=== PATIENT | male | born 1940 | race Caucasian/White ===

== ENCOUNTER → 2018-10-26 | Outpatient (CLI) | payer OTHER | END | disposition home or self-care (01) | LOC: RAD 16:05 | PROVIDERS: ATTEND Family Medicine | DX: I67.82 Cerebral ischemia (principal); C34.90 Malignant neoplasm of unspecified part of unspecified bronchus or lung | CPT/HCPCS: 70551 ==

== ENCOUNTER 2018-11-03 18:03 | Inpatient (IN) | payer OTHER ==
[~2018-11-03] VITALS: Ht 180.3 cm; Wt 77.6 kg
[2018-11-03] MEDS ORDERED: SODIUM CHLORIDE 0.9% 1,000 ML IV ONE (18:07)
[2018-11-03] MEDS ORDERED: PLEASE ENTER ALLERGIES MC SCH (18:30)
[2018-11-03] MEDS ORDERED: SODIUM CHLORIDE FLUSH 10ML SYR IVF ONE (18:30)
[2018-11-03] MEDS ORDERED: PLEASE ENTER HEIGHT AND WEIGHT MC SCH (18:30)
--- NOTE | 2018-11-03 18:30 | NUR ---
requested records from [facility]
--- NOTE | 2018-11-03 18:31 | NUR ---
GUSTAVO AND DAUGHTER AT DNR CODE STATUS PER IS POA PHONE NUMBER GABRIEL [phone] DAUGHTER [facility] [employer] TECHNICAL SPECIALIST [phone]
[2018-11-03 18:32] LABS: BASOPHILS # (AUTO) 0.01 x10^3/uL (0-0.1); BASOPHILS % (AUTO) 0 % (0-1); EOSINOPHILS % (AUTO) 0 % (1-7); LYMPHOCYTES # (AUTO) 1.32 x10^3/uL (1-3.4); LYMPHOCYTES % (AUTO) 7 % (22-44); MD NO; MEAN CORPUSCULAR HEMOGLOBIN 31.8 pg (27.5-34.5); MEAN CORPUSCULAR HGB CONC 34.2 g/dL (33.2-36.2); MEAN PLATELET VOLUME 7.1 fL (7.4-10.4); MONOCYTES # (AUTO) 1.43 x10^3/uL (0.2-0.8); MONOCYTES % (AUTO) 8 % (2-9); NEUTROPHILS # (AUTO) 14.97 x10^3/uL (1.8-6.8); NEUTROPHILS % (AUTO) 84 % (42-75); PLATELET COUNT 448 x10^3/uL (130-400); RED BLOOD COUNT 4.38 x10^6/uL (4.38-5.82); RED CELL DISTRIBUTION WIDTH 13.6 % (9.4-14.8)
[2018-11-03 18:38] LABS: INTERNATIONAL NORMALIZED RATIO 1.2 (0.93-1.1); PROTHROMBIN TIME 12.6 Seconds (9.6-11.5)
[2018-11-03 18:42] LABS: ALANINE AMINOTRANSFERASE 47 U/L (12-78); ALBUMIN 2.6 g/dL (3.4-5.0); ANION GAP 9 mmol/L (5-15); CALCIUM 12.3 mg/dL (8.5-10.1); CHLORIDE 106 mmol/L (98-107)
[2018-11-03 18:44] LABS: ALKALINE PHOSPHATASE 184 U/L (45-117); BILIRUBIN,TOTAL 1.1 mg/dL (0.2-1.0); CREATINE KINASE, TOTAL 95 U/L (39-308); CREATININE 1.26 mg/dL (0.7-1.3); TOTAL PROTEIN 8.8 g/dL (6.4-8.2); TROPONIN I 0.021 ng/mL (0.000-0.045)
[2018-11-03] MEDS ORDERED: CEFTRIAXONE PMX 1GM/50ML 50 ML IV ONE (19:00)
[2018-11-03] MEDS ORDERED: SODIUM CHLORIDE 0.9%, 500ML IVBOLUS ONE ×2 (19:00→20:30)
[2018-11-03] MEDS ORDERED: CEFTRIAXONE PMX 1GM/50ML 50 ML ONE (19:03)
--- NOTE | 2018-11-03 19:14 | NUR ---
care assumed from indu garcia to CT scan, fluids and abx infusing. Addendum: 11/03/18 at 1915 by FELIX BC X 2 DRAWN PRIOR TO ABX INFUSING
[2018-11-03] MEDS ORDERED: OXYCODONE PO (19:20)
--- NOTE | 2018-11-03 19:53 | NUR ---
URINE SENT TO LAB
--- NOTE | 2018-11-03 20:06 | NUR ---
PT PROVIDED ADDITIONAL WARM BLANKETS
[2018-11-03 20:24] LABS: ACETONE, SERUM Trace (10mg/dL) mg/dL (Negative)
[2018-11-03] MEDS ORDERED: OMNIPAQUE 350 MG/ML, 100ML BOTTLE ONE (20:25)
[2018-11-03 20:28] LABS: MICROSCOPIC INDICATED
[2018-11-03 20:30] LABS: CULTURE INDICATED? NO
[2018-11-03] MEDS ORDERED: ONDANSETRON ODT 4 MG PO PRN (21:30)
[2018-11-03] MEDS ORDERED: OXYcodone IR 5MG TABLET PO PRN (21:30)
[2018-11-03] MEDS ORDERED: ONDANSETRON 2MG/ML, 2ML IVPush PRN (21:30)
[2018-11-03] MEDS ORDERED: hydrALAzine 20 MG/ML, 1ML IVPush PRN (21:30)
[2018-11-03] MEDS ORDERED: CALCITONIN SALMON 200 UNITS/ML, 2ML SQ ONE (21:30)
[2018-11-03] MEDS ORDERED: ACETAMINOPHEN 325 MG TABLET PO PRN (21:30)
[2018-11-03] MEDS ORDERED: ENALAPRILAT 1.25 MG/ML, 2ML IVPush PRN (21:30)
[2018-11-03] MEDS ORDERED: morphine SULFATE 10 MG/ML, 1ML IVPush PRN (21:30)
--- NOTE | 2018-11-03 22:09 | NUR ---
nurse called from floor stating they could not take the pt.
[2018-11-03 22:50] VITALS: BP 172/80
[2018-11-03 23:39] VITALS: BP 132/71
[2018-11-04 01:09] VITALS: BP 109/64
[2018-11-04] MEDS: SODIUM CHLORIDE 0.9% 1,000 ML IV SCH ×2 (01:18→08:17)
[2018-11-04] MEDS: HEPARIN 5,000 UNITS/ML, 1ML SQ SCH ×2 (01:19→09:50)
[2018-11-04 03:56] VITALS: BP 147/67
[2018-11-04 07:55] LABS: MEAN CORPUSCULAR HEMOGLOBIN 31.2 pg (27.5-34.5); MEAN CORPUSCULAR HGB CONC 33.6 g/dL (33.2-36.2); MEAN CORPUSCULAR VOLUME 92.9 fL (81-97); MEAN PLATELET VOLUME 6.7 fL (7.4-10.4); PLATELET COUNT 372 x10^3/uL (130-400); RED CELL DISTRIBUTION WIDTH 13.9 % (9.4-14.8)
[2018-11-04 08:06] LABS: ANION GAP 11 mmol/L (5-15); CALCIUM 10.5 mg/dL (8.5-10.1); CHLORIDE 114 mmol/L (98-107)
[2018-11-04 08:15] VITALS: BP 163/75
[2018-11-04 08:41] LABS: BASOPHILS % (AUTO) 0 % (0-1); EOSINOPHILS % (AUTO) 0 % (1-7); LYMPHOCYTES % (AUTO) 5 % (22-44); MD SCAN; MONOCYTES # (AUTO) 1.41 x10^3/uL (0.2-0.8); MONOCYTES % (AUTO) 8 % (2-9); NEUTROPHILS # (AUTO) 15.26 x10^3/uL (1.8-6.8); NEUTROPHILS % (AUTO) 87 % (42-75)
[2018-11-04] MEDS: SENNA/DOCUSATE TABLET PO SCH (09:00)
[2018-11-04] MEDS ORDERED: SODIUM PHOSPHATE 10 MMOL in SODIUM CHLORIDE 0.9% 500 ML IV ONE (09:00)
[2018-11-04 10:17] LABS: AMPHETAMINE SCREEN, URINE Negative (Negative); BARBITURATE SCREEN, URINE Negative (Negative); BENZODIAZEPINE SCREEN, URINE Negative (Negative); CANNABINOID SCREEN, URINE Negative (Negative); COCAINE SCREEN, URINE Negative (Negative); METHADONE SCREEN, URINE Negative (Negative); OPIATE SCREEN, URINE Positive (Negative)
[2018-11-04 10:22] LABS: SALICYLATE LEVEL 2.2 mg/dL (2.8-20.0)
[2018-11-04 10:24] LABS: ACETAMINOPHEN < 2 mcg/mL (10-30)
[2018-11-04] MEDS ORDERED: OMNIPAQUE 350 MG/ML, 100ML BOTTLE ONE (12:05)
[2018-11-04] MEDS ORDERED: OXYcodone/APAP 5/325MG TABLET PO PRN (13:30)
[2018-11-04] MEDS: ACETAMINOPHEN 325 MG TABLET PO SCH ×3 (13:30→21:04)
[2018-11-04] MEDS: IBUPROFEN 200 MG TABLET PO SCH ×2 (14:10→21:04)
--- NOTE | 2018-11-04 14:10 | NUR ---
RAILROAD INSPECTOR recommend: Ground/NTL -No straws -Up at 90 degrees -Small sips Please assist patient as needed orange sheet posted in room for diet recommendations Addendum: 11/04/18 at 1410 by LIT SHORE Amended: Links added.
[2018-11-04 14:20] VITALS: BP 173/72
[2018-11-04 15:26] VITALS: BP 148/63
[2018-11-04 19:14] VITALS: BP 165/74
[2018-11-04] MEDS ORDERED: CEFTRIAXONE PMX 1GM/50ML 50 ML IV SCH (22:30)
[2018-11-05] VITALS (7 sets, daily range): BP systolic 151–189; BP diastolic 47–87
[2018-11-05] MEDS: ACETAMINOPHEN 325 MG TABLET PO SCH ×6 (01:30→23:00)
[2018-11-05] MEDS: IBUPROFEN 200 MG TABLET PO SCH ×3 (01:30→14:42)
[2018-11-05 05:32] LABS: MEAN CORPUSCULAR HEMOGLOBIN 31.6 pg (27.5-34.5); MEAN CORPUSCULAR HGB CONC 33.5 g/dL (33.2-36.2); MEAN CORPUSCULAR VOLUME 94.5 fL (81-97); MEAN PLATELET VOLUME 7.2 fL (7.4-10.4); PLATELET COUNT 369 x10^3/uL (130-400); RED BLOOD COUNT 3.62 x10^6/uL (4.38-5.82)
[2018-11-05 05:37] LABS: ANION GAP 8 mmol/L (5-15); CALCIUM 10.3 mg/dL (8.5-10.1); CHLORIDE 118 mmol/L (98-107); CREATININE 0.92 mg/dL (0.7-1.3)
[2018-11-05 06:42] LABS: BASOPHILS # (AUTO) 0.04 x10^3/uL (0-0.1); BASOPHILS % (AUTO) 0 % (0-1); EOSINOPHILS # (AUTO) 0.01 x10^3/uL (0-0.4); EOSINOPHILS % (AUTO) 0 % (1-7); LYMPHOCYTES # (AUTO) 1.14 x10^3/uL (1-3.4); LYMPHOCYTES % (AUTO) 8 % (22-44); MD SCAN; MONOCYTES # (AUTO) 1.68 x10^3/uL (0.2-0.8); MONOCYTES % (AUTO) 12 % (2-9); NEUTROPHILS % (AUTO) 80 % (42-75)
[2018-11-05] MEDS: D5%-0.45% NACL 1,000 ML IV SCH ×2 (06:57→16:38)
[2018-11-05] MEDS ORDERED: OXYcodone/APAP 5/325MG TABLET PO SCH ×2 (07:30→09:00)
[2018-11-05] MEDS: SENNA/DOCUSATE TABLET PO SCH (09:00)
[2018-11-05] MEDS: LISINOPRIL 5 MG TABLET PO SCH (09:02)
[2018-11-05] MEDS ORDERED: FLUMAZENIL 0.1 MG/1 ML, 5ML ONE (10:24)
[2018-11-05] MEDS ORDERED: FENTANYL PF 100 MCG/2ML ONE (10:24)
[2018-11-05] MEDS ORDERED: MIDAZOLAM 1 MG/ML, 5ML ONE (10:24)
[2018-11-05] MEDS ORDERED: NALOXONE 1 MG/ML, 2ML ONE (10:24)
[2018-11-05] MEDS ORDERED: LIDOCAINE-MPF 1%, 5ML ONE (10:47)
[2018-11-05] MEDS ORDERED: OMNIPAQUE 350 MG/ML, 75ML BOTTLE ONE (10:49)
[2018-11-05] MEDS: KETOROLAC 30 MG/1 ML IV PRN (12:40)
--- NOTE | 2018-11-05 13:15 | NUR ---
LINER WORKER recommend: NAHUM/BENJAMÍN -No straws -Up at 90 degrees -Small sips Please assist patient as needed Yancey sheet posted for diet recommendations Addendum: 11/05/18 at [address] Amended: Links added.
[2018-11-05] MEDS: OXYcodone IR 5MG TABLET PO SCH ×2 (14:42→20:48)
[2018-11-05] MEDS ORDERED: OXYcodone IR 5MG TABLET PO PRN (15:00)
[2018-11-06] MEDS: OXYcodone IR 5MG TABLET PO SCH ×4 (02:07→21:07)
[2018-11-06] MEDS: ACETAMINOPHEN 325 MG TABLET PO SCH ×6 (02:07→23:19)
[2018-11-06 02:26] VITALS: BP 184/68
[2018-11-06 02:45] VITALS: BP 159/71
[2018-11-06 05:50] LABS: ALBUMIN 1.8 g/dL (3.4-5.0); ANION GAP 10 mmol/L (5-15); CALCIUM 10.8 mg/dL (8.5-10.1); CHLORIDE 116 mmol/L (98-107); MEAN CORPUSCULAR HEMOGLOBIN 31.9 pg (27.5-34.5); MEAN CORPUSCULAR HGB CONC 33.8 g/dL (33.2-36.2); MEAN CORPUSCULAR VOLUME 94.3 fL (81-97); MEAN PLATELET VOLUME 7.3 fL (7.4-10.4); PLATELET COUNT 329 x10^3/uL (130-400); RED BLOOD COUNT 3.37 x10^6/uL (4.38-5.82); RED CELL DISTRIBUTION WIDTH 13.9 % (9.4-14.8)
[2018-11-06 05:51] LABS: CREATININE 1.66 mg/dL (0.7-1.3)
[2018-11-06 06:52] VITALS: BP 135/64
[2018-11-06 07:26] LABS: BASOPHILS # (AUTO) 0.01 x10^3/uL (0-0.1); BASOPHILS % (AUTO) 0 % (0-1); EOSINOPHILS # (AUTO) 0.04 x10^3/uL (0-0.4); EOSINOPHILS % (AUTO) 0 % (1-7); LYMPHOCYTES # (AUTO) 1.25 x10^3/uL (1-3.4); LYMPHOCYTES % (AUTO) 11 % (22-44); MD SCAN; MONOCYTES # (AUTO) 1.48 x10^3/uL (0.2-0.8); MONOCYTES % (AUTO) 13 % (2-9); NEUTROPHILS # (AUTO) 8.99 x10^3/uL (1.8-6.8); NEUTROPHILS % (AUTO) 76 % (42-75)
[2018-11-06] MEDS: D5%-0.45% NACL 1,000 ML IV SCH ×2 (08:18→19:39)
[2018-11-06] MEDS: LISINOPRIL 5 MG TABLET PO SCH (08:26)
[2018-11-06] MEDS: SENNA/DOCUSATE TABLET PO SCH (08:28)
[2018-11-06 12:42] VITALS: BP 135/67
[2018-11-06 20:20] VITALS: BP 152/66
[2018-11-07 00:33] VITALS: BP 166/78
[2018-11-07] MEDS: OXYcodone IR 5MG TABLET PO SCH ×4 (02:17→20:38)
[2018-11-07] MEDS: ACETAMINOPHEN 325 MG TABLET PO SCH ×6 (02:17→22:35)
[2018-11-07] MEDS: D5%-0.45% NACL 1,000 ML IV SCH ×2 (06:06→15:42)
[2018-11-07 06:17] LABS: BASOPHILS # (AUTO) 0.02 x10^3/uL (0-0.1); BASOPHILS % (AUTO) 0 % (0-1); EOSINOPHILS % (AUTO) 1 % (1-7); LYMPHOCYTES % (AUTO) 12 % (22-44); MD NO; MEAN CORPUSCULAR HEMOGLOBIN 31.5 pg (27.5-34.5); MEAN CORPUSCULAR HGB CONC 33.6 g/dL (33.2-36.2); MEAN CORPUSCULAR VOLUME 93.5 fL (81-97); MEAN PLATELET VOLUME 6.8 fL (7.4-10.4); MONOCYTES # (AUTO) 1.38 x10^3/uL (0.2-0.8); MONOCYTES % (AUTO) 12 % (2-9); NEUTROPHILS # (AUTO) 8.65 x10^3/uL (1.8-6.8); NEUTROPHILS % (AUTO) 75 % (42-75); PLATELET COUNT 314 x10^3/uL (130-400); RED BLOOD COUNT 3.55 x10^6/uL (4.38-5.82); RED CELL DISTRIBUTION WIDTH 14.2 % (9.4-14.8)
[2018-11-07 06:30] LABS: ANION GAP 9 mmol/L (5-15); CALCIUM 10.2 mg/dL (8.5-10.1); CHLORIDE 114 mmol/L (98-107); CREATININE 2.97 mg/dL (0.7-1.3)
[2018-11-07 07:14] VITALS: BP 137/59
[2018-11-07] MEDS: SENNA/DOCUSATE TABLET PO SCH (08:18)
[2018-11-07] MEDS: LISINOPRIL 5 MG TABLET PO SCH (08:18)
[2018-11-07] MEDS ORDERED: VERAPAMIL 80MG TABLET PO SCH (09:00)
[2018-11-07 13:17] VITALS: BP 152/69
[2018-11-07] MEDS: DOCUSATE 100 MG CAPSULE PO PRN (15:41)
[2018-11-07 19:36] VITALS: BP 177/79
[2018-11-07 22:39] VITALS: BP 174/71
[2018-11-08] MEDS: HEPARIN 5,000 UNITS/ML, 1ML SQ SCH ×3 (00:02→22:06)
[2018-11-08 01:07] VITALS: BP 166/69
[2018-11-08] MEDS: D5%-0.45% NACL 1,000 ML IV SCH ×2 (01:30→11:30)
[2018-11-08 01:54] VITALS: BP 165/69
[2018-11-08] MEDS: OXYcodone IR 5MG TABLET PO SCH ×4 (03:37→22:06)
[2018-11-08] MEDS: ACETAMINOPHEN 325 MG TABLET PO SCH ×5 (03:37→22:06)
[2018-11-08] MEDS: POLYETHYLENE GLYCOL 17 GM PACKET PO PRN (03:46)
[2018-11-08 05:28] LABS: MEAN CORPUSCULAR HEMOGLOBIN 31.1 pg (27.5-34.5); MEAN CORPUSCULAR HGB CONC 33.5 g/dL (33.2-36.2); MEAN CORPUSCULAR VOLUME 92.7 fL (81-97); MEAN PLATELET VOLUME 7.2 fL (7.4-10.4); PLATELET COUNT 322 x10^3/uL (130-400); RED BLOOD COUNT 3.63 x10^6/uL (4.38-5.82); RED CELL DISTRIBUTION WIDTH 13.8 % (9.4-14.8)
[2018-11-08 05:41] LABS: CHLORIDE 117 mmol/L (98-107)
[2018-11-08 05:47] LABS: CALCIUM 10.1 mg/dL (8.5-10.1); CREATININE 0.98 mg/dL (0.7-1.3)
[2018-11-08 05:53] LABS: ANION GAP 8 mmol/L (5-15); BASOPHILS # (AUTO) 0.03 x10^3/uL (0-0.1); BASOPHILS % (AUTO) 0 % (0-1); EOSINOPHILS # (AUTO) 0.04 x10^3/uL (0-0.4); EOSINOPHILS % (AUTO) 0 % (1-7); LYMPHOCYTES # (AUTO) 1.43 x10^3/uL (1-3.4); LYMPHOCYTES % (AUTO) 11 % (22-44); MD SCAN; MONOCYTES # (AUTO) 1.49 x10^3/uL (0.2-0.8); MONOCYTES % (AUTO) 12 % (2-9); NEUTROPHILS # (AUTO) 9.65 x10^3/uL (1.8-6.8); NEUTROPHILS % (AUTO) 76 % (42-75)
[2018-11-08] MEDS ORDERED: MAGNESIUM SULFATE PMX 2GM/50ML 50 ML IV ONE (06:30)
[2018-11-08 06:57] VITALS: BP 158/72
[2018-11-08] MEDS ORDERED: AMLODIPINE 2.5 MG TABLET PO SCH (09:00)
[2018-11-08] MEDS: SENNA/DOCUSATE TABLET PO SCH (09:09)
[2018-11-08] MEDS ORDERED: POTASSIUM PHOSPHATE 44 MEQ in SODIUM CHLORIDE 0.9% 500 ML IV ONE (12:30)
[2018-11-08 13:18] VITALS: BP 146/68
[2018-11-08 15:45] LABS: CULTURE INDICATED? YES; MICROSCOPIC INDICATED
[2018-11-08 19:46] VITALS: BP 147/72
[2018-11-09] MEDS: ACETAMINOPHEN 325 MG TABLET PO SCH ×6 (01:00→22:46)
[2018-11-09 01:43] VITALS: BP 166/66
[2018-11-09 05:11] LABS: MEAN CORPUSCULAR HEMOGLOBIN 31.2 pg (27.5-34.5); MEAN CORPUSCULAR HGB CONC 33.7 g/dL (33.2-36.2); MEAN CORPUSCULAR VOLUME 92.4 fL (81-97); MEAN PLATELET VOLUME 7.3 fL (7.4-10.4); PLATELET COUNT 345 x10^3/uL (130-400); RED BLOOD COUNT 3.62 x10^6/uL (4.38-5.82); RED CELL DISTRIBUTION WIDTH 13.8 % (9.4-14.8)
[2018-11-09] MEDS: OXYcodone IR 5MG TABLET PO SCH ×4 (05:11→22:46)
[2018-11-09 05:21] LABS: ANION GAP 9 mmol/L (5-15); CALCIUM 9.7 mg/dL (8.5-10.1); CHLORIDE 109 mmol/L (98-107)
[2018-11-09 05:25] LABS: ALANINE AMINOTRANSFERASE 65 U/L (12-78); ALKALINE PHOSPHATASE 273 U/L (45-117); BILIRUBIN,TOTAL 0.7 mg/dL (0.2-1.0); CREATININE 0.76 mg/dL (0.7-1.3); TOTAL PROTEIN 7.1 g/dL (6.4-8.2)
[2018-11-09 05:48] LABS: BASOPHILS # (AUTO) 0.01 x10^3/uL (0-0.1); BASOPHILS % (AUTO) 0 % (0-1); EOSINOPHILS # (AUTO) 0.07 x10^3/uL (0-0.4); EOSINOPHILS % (AUTO) 1 % (1-7); LYMPHOCYTES # (AUTO) 1.61 x10^3/uL (1-3.4); LYMPHOCYTES % (AUTO) 12 % (22-44); MD SCAN; MONOCYTES # (AUTO) 1.91 x10^3/uL (0.2-0.8); MONOCYTES % (AUTO) 14 % (2-9); NEUTROPHILS # (AUTO) 10.26 x10^3/uL (1.8-6.8); NEUTROPHILS % (AUTO) 74 % (42-75)
[2018-11-09] MEDS ORDERED: MAGNESIUM SULFATE PMX 2GM/50ML 50 ML IV ONE (06:30)
[2018-11-09] MEDS ORDERED: TAMSULOSIN 0.4 MG CAP.ER.24H PO ONE (07:00)
[2018-11-09] MEDS ORDERED: POTASSIUM PHOSPHATE 44 MEQ in SODIUM CHLORIDE 0.9% 500 ML IV ONE (07:00)
[2018-11-09 07:14] VITALS: BP 147/65
[2018-11-09] MEDS: SENNA/DOCUSATE TABLET PO SCH (08:14)
[2018-11-09] MEDS: AMLODIPINE 5 MG TABLET PO SCH (08:14)
[2018-11-09] MEDS ORDERED: AMLODIPINE 5 MG TABLET PO SCH (09:00)
[2018-11-09] MEDS: KETOROLAC 30 MG/1 ML IV PRN (10:39)
[2018-11-09] MEDS: HEPARIN 5,000 UNITS/ML, 1ML SQ SCH ×2 (12:12→22:47)
[2018-11-09 13:02] VITALS: BP 120/61
[2018-11-09 20:31] VITALS: BP 148/71
[2018-11-10 02:33] VITALS: BP 163/72
[2018-11-10] MEDS: ACETAMINOPHEN 325 MG TABLET PO SCH ×6 (03:00→22:42)
[2018-11-10 05:45] LABS: MEAN CORPUSCULAR HEMOGLOBIN 31.4 pg (27.5-34.5); MEAN CORPUSCULAR HGB CONC 33.9 g/dL (33.2-36.2); MEAN CORPUSCULAR VOLUME 92.8 fL (81-97); MEAN PLATELET VOLUME 7.5 fL (7.4-10.4); PLATELET COUNT 359 x10^3/uL (130-400); RED CELL DISTRIBUTION WIDTH 13.8 % (9.4-14.8)
[2018-11-10 05:55] LABS: ANION GAP 9 mmol/L (5-15); CHLORIDE 108 mmol/L (98-107); CREATININE 0.94 mg/dL (0.7-1.3)
[2018-11-10] MEDS: OXYcodone IR 5MG TABLET PO SCH ×3 (06:03→18:30)
[2018-11-10 06:38] LABS: BASOPHILS # (AUTO) 0.03 x10^3/uL (0-0.1); BASOPHILS % (AUTO) 0 % (0-1); EOSINOPHILS # (AUTO) 0.08 x10^3/uL (0-0.4); EOSINOPHILS % (AUTO) 1 % (1-7); LYMPHOCYTES # (AUTO) 1.44 x10^3/uL (1-3.4); LYMPHOCYTES % (AUTO) 9 % (22-44); MD SCAN; MONOCYTES % (AUTO) 13 % (2-9); NEUTROPHILS # (AUTO) 12.25 x10^3/uL (1.8-6.8); NEUTROPHILS % (AUTO) 78 % (42-75)
[2018-11-10 07:40] VITALS: BP 159/69
[2018-11-10] MEDS: AMLODIPINE 5 MG TABLET PO SCH (08:20)
[2018-11-10] MEDS: SENNA/DOCUSATE TABLET PO SCH (08:22)
[2018-11-10] MEDS: HEPARIN 5,000 UNITS/ML, 1ML SQ SCH ×2 (11:55→22:42)
[2018-11-10 14:17] VITALS: BP 154/73
[2018-11-10 19:04] VITALS: BP 155/72
[2018-11-11] MEDS: OXYcodone IR 5MG TABLET PO SCH ×5 (01:07→18:13)
[2018-11-11 01:16] VITALS: BP 148/67
[2018-11-11] MEDS: ACETAMINOPHEN 325 MG TABLET PO SCH ×6 (02:30→21:44)
[2018-11-11 05:58] LABS: MEAN CORPUSCULAR HEMOGLOBIN 31.9 pg (27.5-34.5); MEAN CORPUSCULAR HGB CONC 34.2 g/dL (33.2-36.2); MEAN CORPUSCULAR VOLUME 93.1 fL (81-97); MEAN PLATELET VOLUME 7.1 fL (7.4-10.4); PLATELET COUNT 345 x10^3/uL (130-400); RED BLOOD COUNT 3.83 x10^6/uL (4.38-5.82)
[2018-11-11 06:08] LABS: ANION GAP 7 mmol/L (5-15); CALCIUM 10.8 mg/dL (8.5-10.1); CHLORIDE 107 mmol/L (98-107); CREATININE 1.13 mg/dL (0.7-1.3)
[2018-11-11 06:13] LABS: BASOPHILS # (AUTO) 0.02 x10^3/uL (0-0.1); BASOPHILS % (AUTO) 0 % (0-1); EOSINOPHILS # (AUTO) 0.08 x10^3/uL (0-0.4); EOSINOPHILS % (AUTO) 1 % (1-7); LYMPHOCYTES # (AUTO) 1.62 x10^3/uL (1-3.4); LYMPHOCYTES % (AUTO) 12 % (22-44); MD SCAN; MONOCYTES % (AUTO) 13 % (2-9); NEUTROPHILS # (AUTO) 9.86 x10^3/uL (1.8-6.8); NEUTROPHILS % (AUTO) 74 % (42-75)
[2018-11-11 07:36] VITALS: BP 140/63
[2018-11-11] MEDS: SENNA/DOCUSATE TABLET PO SCH (08:06)
[2018-11-11] MEDS: AMLODIPINE 5 MG TABLET PO SCH (08:06)
[2018-11-11] MEDS: POLYETHYLENE GLYCOL 17 GM PACKET PO PRN (08:06)
[2018-11-11] MEDS: HEPARIN 5,000 UNITS/ML, 1ML SQ SCH ×2 (12:11→23:41)
[2018-11-11 13:29] VITALS: BP 136/69
[2018-11-11] MEDS ORDERED: ZOLEDRONIC ACID 4MG/100ML 100 ML IV ONE (14:00)
[2018-11-11] MEDS ORDERED: ZOLEDRONIC ACID 4 MG in SODIUM CHLORIDE 0.9% 100 ML IVPB ONE (14:00)
[2018-11-11 19:36] VITALS: BP 128/68
[2018-11-12] MEDS: OXYcodone IR 5MG TABLET PO SCH ×4 (01:15→19:51)
[2018-11-12 01:26] VITALS: BP 143/71
[2018-11-12] MEDS: ACETAMINOPHEN 325 MG TABLET PO SCH ×6 (03:31→23:13)
[2018-11-12 05:23] LABS: MEAN CORPUSCULAR HEMOGLOBIN 31.9 pg (27.5-34.5); MEAN CORPUSCULAR HGB CONC 34.5 g/dL (33.2-36.2); MEAN CORPUSCULAR VOLUME 92.4 fL (81-97); MEAN PLATELET VOLUME 7.3 fL (7.4-10.4); PLATELET COUNT 365 x10^3/uL (130-400); RED BLOOD COUNT 3.69 x10^6/uL (4.38-5.82); RED CELL DISTRIBUTION WIDTH 14.1 % (9.4-14.8)
[2018-11-12 05:36] LABS: ANION GAP 9 mmol/L (5-15); CALCIUM 10.1 mg/dL (8.5-10.1); CHLORIDE 105 mmol/L (98-107); CREATININE 0.86 mg/dL (0.7-1.3)
[2018-11-12 05:42] LABS: BASOPHILS # (AUTO) 0.03 x10^3/uL (0-0.1); BASOPHILS % (AUTO) 0 % (0-1); EOSINOPHILS # (AUTO) 0.04 x10^3/uL (0-0.4); EOSINOPHILS % (AUTO) 0 % (1-7); LYMPHOCYTES # (AUTO) 1.27 x10^3/uL (1-3.4); LYMPHOCYTES % (AUTO) 8 % (22-44); MD SCAN; MONOCYTES % (AUTO) 15 % (2-9); NEUTROPHILS # (AUTO) 12.08 x10^3/uL (1.8-6.8); NEUTROPHILS % (AUTO) 77 % (42-75)
[2018-11-12] MEDS: BISACODYL 10 MG SUPP PR PRN (06:45)
[2018-11-12] MEDS: SENNA/DOCUSATE TABLET PO SCH (09:00)
[2018-11-12 09:05] VITALS: BP 142/67
[2018-11-12] MEDS ORDERED: LORazepam 0.5MG TABLET PO ONE (10:30)
[2018-11-12] MEDS ORDERED: LORazepam 2 MG/ML, 1ML IVPush PRN (10:30)
[2018-11-12] MEDS: HEPARIN 5,000 UNITS/ML, 1ML SQ SCH ×2 (12:08→23:13)
[2018-11-12] MEDS: AMLODIPINE 5 MG TABLET PO SCH (12:08)
[2018-11-12 15:14] VITALS: BP 105/55
[2018-11-12 19:42] VITALS: BP 137/69
[2018-11-13] MEDS: OXYcodone IR 5MG TABLET PO SCH ×4 (00:59→17:34)
[2018-11-13 01:59] VITALS: BP 129/64
[2018-11-13] MEDS: ACETAMINOPHEN 325 MG TABLET PO SCH ×6 (02:53→22:22)
[2018-11-13 04:27] LABS: MEAN CORPUSCULAR HEMOGLOBIN 31.5 pg (27.5-34.5); MEAN CORPUSCULAR HGB CONC 33.8 g/dL (33.2-36.2); MEAN CORPUSCULAR VOLUME 93.1 fL (81-97); MEAN PLATELET VOLUME 7.3 fL (7.4-10.4); PLATELET COUNT 361 x10^3/uL (130-400); RED BLOOD COUNT 3.47 x10^6/uL (4.38-5.82); RED CELL DISTRIBUTION WIDTH 14.5 % (9.4-14.8)
[2018-11-13 04:35] LABS: ANION GAP 5 mmol/L (5-15); CALCIUM 9.5 mg/dL (8.5-10.1); CHLORIDE 107 mmol/L (98-107); CREATININE 0.84 mg/dL (0.7-1.3)
[2018-11-13 04:57] LABS: BASOPHILS # (AUTO) 0.02 x10^3/uL (0-0.1); BASOPHILS % (AUTO) 0 % (0-1); EOSINOPHILS % (AUTO) 1 % (1-7); LYMPHOCYTES # (AUTO) 1.31 x10^3/uL (1-3.4); LYMPHOCYTES % (AUTO) 9 % (22-44); MD SCAN; MONOCYTES # (AUTO) 2.19 x10^3/uL (0.2-0.8); MONOCYTES % (AUTO) 16 % (2-9); NEUTROPHILS # (AUTO) 10.53 x10^3/uL (1.8-6.8); NEUTROPHILS % (AUTO) 74 % (42-75)
[2018-11-13] MEDS ORDERED: POTASSIUM PHOSPHATE 22 MEQ in SODIUM CHLORIDE 0.9% 500 ML IV ONE (07:30)
[2018-11-13 08:25] VITALS: BP 124/54
[2018-11-13] MEDS: SENNA/DOCUSATE TABLET PO SCH (09:00)
[2018-11-13] MEDS: AMLODIPINE 5 MG TABLET PO SCH (09:31)
[2018-11-13] MEDS: HEPARIN 5,000 UNITS/ML, 1ML SQ SCH ×2 (12:14→22:23)
[2018-11-13 13:04] VITALS: BP 113/51
[2018-11-13 19:59] VITALS: BP 119/63
[2018-11-14] MEDS: OXYcodone IR 5MG TABLET PO SCH ×5 (00:13→22:00)
[2018-11-14 01:47] VITALS: BP 121/59
[2018-11-14] MEDS: ACETAMINOPHEN 325 MG TABLET PO SCH ×6 (02:08→19:54)
[2018-11-14 08:37] VITALS: BP 123/71
[2018-11-14 08:56] LABS: MEAN CORPUSCULAR HEMOGLOBIN 30.6 pg (27.5-34.5); MEAN CORPUSCULAR HGB CONC 33.1 g/dL (33.2-36.2); MEAN CORPUSCULAR VOLUME 92.6 fL (81-97); MEAN PLATELET VOLUME 7.3 fL (7.4-10.4); PLATELET COUNT 408 x10^3/uL (130-400); RED BLOOD COUNT 3.48 x10^6/uL (4.38-5.82); RED CELL DISTRIBUTION WIDTH 14.2 % (9.4-14.8)
[2018-11-14 09:07] LABS: ANION GAP 7 mmol/L (5-15); CALCIUM 8.3 mg/dL (8.5-10.1); CHLORIDE 106 mmol/L (98-107); CREATININE 0.65 mg/dL (0.7-1.3)
[2018-11-14] MEDS: SENNA/DOCUSATE TABLET PO SCH (09:14)
[2018-11-14] MEDS: AMLODIPINE 5 MG TABLET PO SCH (09:14)
[2018-11-14] MEDS: D5%-0.45% NACL 1,000 ML IV SCH ×2 (09:14→19:54)
[2018-11-14 09:20] LABS: BASOPHILS # (AUTO) 0.03 x10^3/uL (0-0.1); BASOPHILS % (AUTO) 0 % (0-1); EOSINOPHILS # (AUTO) 0.04 x10^3/uL (0-0.4); EOSINOPHILS % (AUTO) 0 % (1-7); LYMPHOCYTES # (AUTO) 1.21 x10^3/uL (1-3.4); LYMPHOCYTES % (AUTO) 8 % (22-44); MD SCAN; MONOCYTES # (AUTO) 2.16 x10^3/uL (0.2-0.8); MONOCYTES % (AUTO) 14 % (2-9); NEUTROPHILS # (AUTO) 11.65 x10^3/uL (1.8-6.8); NEUTROPHILS % (AUTO) 77 % (42-75)
[2018-11-14] MEDS: HEPARIN 5,000 UNITS/ML, 1ML SQ SCH ×2 (10:54→19:27)
[2018-11-14] MEDS ORDERED: ONDANSETRON 2MG/ML, 2ML ONE (13:54)
[2018-11-14] MEDS ORDERED: PROPOFOL 10 MG/ML, 20ML ONE (13:54)
[2018-11-14] MEDS ORDERED: CEFAZOLIN 1,000 MG ONE (13:54)
[2018-11-14] MEDS ORDERED: NEOSTIGMINE 1 MG/ML, 10ML ONE (13:54)
[2018-11-14] MEDS ORDERED: FENTANYL PF 250 MCG/5ML ONE (13:54)
[2018-11-14] MEDS ORDERED: MIDAZOLAM 1 MG/ML, 5ML ONE (13:54)
[2018-11-14] MEDS ORDERED: DEXAMETHASONE 4 MG/ML, 1ML ONE (13:54)
[2018-11-14] MEDS ORDERED: ROCURONIUM 10MG/ML,5ML ONE (13:54)
[2018-11-14] MEDS ORDERED: OXYcodone 5 MG/5 ML ORAL.SOL UDC PO PRN (14:30)
[2018-11-14] MEDS ORDERED: HYDROmorphone 2 MG/ML, 1ML IVPush PRN (14:30)
[2018-11-14] MEDS ORDERED: MEPERIDINE/PF 25MG/0.5ML IVPush PRN (14:30)
[2018-11-14] MEDS ORDERED: hydrALAzine 20 MG/ML, 1ML IV PRN (14:30)
[2018-11-14] MEDS ORDERED: FENTANYL PF 100 MCG/2ML IV PRN (14:30)
[2018-11-14] MEDS ORDERED: LORazepam 2 MG/ML, 1ML IVPush PRN (14:30)
[2018-11-14] MEDS ORDERED: HALOPERIDOL 5 MG/ML IV PRN (14:30)
[2018-11-14] MEDS ORDERED: ALBUTEROL SULFATE 2.5 MG/3 ML NPPB PRN (14:30)
[2018-11-14] MEDS ORDERED: PROMETHAZINE 25 MG/ML, 1ML IV PRN (14:30)
[2018-11-14] MEDS ORDERED: LABETALOL 5MG/ML, 20ML IV PRN (14:30)
[2018-11-14 19:19] VITALS: BP 117/76
[2018-11-14] MEDS: CEFAZOLIN PMX 1GM/50ML 50 ML IVPB SCH (21:52)
[2018-11-15] MEDS: ACETAMINOPHEN 325 MG TABLET PO SCH ×6 (00:45→22:23)
[2018-11-15 01:04] VITALS: BP 127/55
[2018-11-15] MEDS: D5%-0.45% NACL 1,000 ML IV SCH ×2 (02:03→13:18)
[2018-11-15] MEDS: OXYcodone IR 5MG TABLET PO SCH ×3 (04:53→18:34)
[2018-11-15] MEDS: CEFAZOLIN PMX 1GM/50ML 50 ML IVPB SCH (06:06)
[2018-11-15 07:25] VITALS: BP 109/59
[2018-11-15] MEDS: SENNA/DOCUSATE TABLET PO SCH (09:04)
[2018-11-15] MEDS: AMLODIPINE 5 MG TABLET PO SCH (09:04)
[2018-11-15] MEDS: ENOXAPARIN 40 MG/0.4 ML SQ SCH (11:28)
[2018-11-15 12:24] LABS: MEAN CORPUSCULAR HEMOGLOBIN 31.5 pg (27.5-34.5); MEAN CORPUSCULAR HGB CONC 33.6 g/dL (33.2-36.2); MEAN PLATELET VOLUME 7.3 fL (7.4-10.4); PLATELET COUNT 435 x10^3/uL (130-400); RED BLOOD COUNT 3.28 x10^6/uL (4.38-5.82); RED CELL DISTRIBUTION WIDTH 14.2 % (9.4-14.8)
[2018-11-15 12:36] LABS: ALBUMIN 1.9 g/dL (3.4-5.0); ANION GAP 8 mmol/L (5-15); CALCIUM 7.2 mg/dL (8.5-10.1); CHLORIDE 102 mmol/L (98-107)
[2018-11-15 12:40] LABS: ALANINE AMINOTRANSFERASE 34 U/L (12-78); ALKALINE PHOSPHATASE 258 U/L (45-117); BILIRUBIN,TOTAL 0.3 mg/dL (0.2-1.0); CREATININE 0.73 mg/dL (0.7-1.3); TOTAL PROTEIN 7.1 g/dL (6.4-8.2)
[2018-11-15 12:44] LABS: BASOPHILS % (AUTO) 0 % (0-1); EOSINOPHILS % (AUTO) 0 % (1-7); LYMPHOCYTES # (AUTO) 1.16 x10^3/uL (1-3.4); LYMPHOCYTES % (AUTO) 7 % (22-44); MD SCAN; MONOCYTES # (AUTO) 1.89 x10^3/uL (0.2-0.8); MONOCYTES % (AUTO) 11 % (2-9); NEUTROPHILS % (AUTO) 83 % (42-75)
[2018-11-15 13:35] VITALS: BP 121/68
[2018-11-15 19:27] VITALS: BP 120/65
[2018-11-16] MEDS: OXYcodone IR 5MG TABLET PO SCH ×4 (00:52→18:35)
[2018-11-16] MEDS: D5%-0.45% NACL 1,000 ML IV SCH (00:53)
[2018-11-16 02:26] VITALS: BP 117/60
[2018-11-16] MEDS: ACETAMINOPHEN 325 MG TABLET PO SCH ×6 (02:30→22:43)
[2018-11-16 07:44] VITALS: BP 102/53
[2018-11-16] MEDS: SENNA/DOCUSATE TABLET PO SCH (08:43)
[2018-11-16] MEDS: AMLODIPINE 5 MG TABLET PO SCH (08:43)
[2018-11-16] MEDS: ENOXAPARIN 40 MG/0.4 ML SQ SCH (13:08)
[2018-11-16 13:55] VITALS: BP 110/65
[2018-11-16 20:05] VITALS: BP 112/63
[2018-11-17 00:53] VITALS: BP 111/59
[2018-11-17] MEDS: OXYcodone IR 5MG TABLET PO SCH ×4 (02:12→20:09)
[2018-11-17] MEDS: ACETAMINOPHEN 325 MG TABLET PO SCH ×6 (02:12→22:19)
[2018-11-17] MEDS: POLYETHYLENE GLYCOL 17 GM PACKET PO PRN (02:22)
[2018-11-17 07:38] VITALS: BP 131/56
[2018-11-17] MEDS: SENNA/DOCUSATE TABLET PO SCH (07:55)
[2018-11-17] MEDS: AMLODIPINE 5 MG TABLET PO SCH (07:56)
[2018-11-17] MEDS: DOCUSATE 100 MG CAPSULE PO PRN (07:56)
[2018-11-17] MEDS: ENOXAPARIN 40 MG/0.4 ML SQ SCH (11:17)
[2018-11-17 13:50] VITALS: BP 116/59
[2018-11-17] MEDS: BISACODYL 10 MG SUPP PR PRN (14:34)
[2018-11-17 20:05] VITALS: BP 125/83
[2018-11-18 01:48] VITALS: BP 123/55
[2018-11-18] MEDS: ACETAMINOPHEN 325 MG TABLET PO SCH ×4 (01:52→14:10)
[2018-11-18] MEDS: OXYcodone IR 5MG TABLET PO SCH ×3 (01:52→14:10)
[2018-11-18 07:55] VITALS: BP 127/66
[2018-11-18] MEDS: AMLODIPINE 5 MG TABLET PO SCH (07:57)
[2018-11-18] MEDS: SENNA/DOCUSATE TABLET PO SCH (07:57)
[2018-11-18] MEDS: ENOXAPARIN 40 MG/0.4 ML SQ SCH (11:32)
[2018-11-18] MEDS ORDERED: DOCU-131 PO (12:24)
[2018-11-18] MEDS ORDERED: SENN1TAB8 PO (12:24)
[2018-11-18] MEDS ORDERED: ACET325T14 PO (12:24)
[2018-11-18] MEDS ORDERED: POLY17PO5 PO (12:24)
[2018-11-18] MEDS ORDERED: AMLO-150 PO (12:24)
[2018-11-18] MEDS ORDERED: OXYC5TAB3 PO ×2 (12:24→12:51)
[2018-11-18] MEDS ORDERED: BISA10SU65 PR (12:24)
[2018-11-18 14:12] VITALS: BP 102/61
== END 2018-11-18 16:36 | DRG 469 ==
LOC: EDBD 18:03 → MERGE 18:03 → ED 20:23 → EDIP 20:24 → ED 20:45 → 4EST 22:46 → 4WST 11-11 22:24 → 3NW 11-12 07:40
PROVIDERS: ADMIT Student in an Organized Health Care Education/Training Program; ATTEND Student in an Organized Health Care Education/Training Program
PROC: 0T9B70Z Drainage of Bladder with Drainage Device, Via Natural or Artificial Opening (ICD-10-PCS; 2018-11-03)
PROC: 0QB23ZX Excision of Right Pelvic Bone, Percutaneous Approach, Diagnostic (ICD-10-PCS; 2018-11-05)
PROC: 0FB13ZX Excision of Right Lobe Liver, Percutaneous Approach, Diagnostic (ICD-10-PCS; 2018-11-05)
PROC: 0SRR0J9 Replacement of Right Hip Joint, Femoral Surface with Synthetic Substitute, Cemented, Open Approach (ICD-10-PCS; principal; 2018-11-14)
DX: S72.111A Displaced fracture of greater trochanter of right femur, initial encounter for closed fracture (principal); G93.41 Metabolic encephalopathy; C34.90 Malignant neoplasm of unspecified part of unspecified bronchus or lung; N17.9 Acute kidney failure, unspecified; C78.7 Secondary malignant neoplasm of liver and intrahepatic bile duct; C79.51 Secondary malignant neoplasm of bone; E87.0 Hyperosmolality and hypernatremia; R54 Age-related physical debility; E83.52 Hypercalcemia; I10 Essential (primary) hypertension; G89.29 Other chronic pain; W18.39XA Other fall on same level, initial encounter; F17.200 Nicotine dependence, unspecified, uncomplicated; I65.21 Occlusion and stenosis of right carotid artery; J43.9 Emphysema, unspecified; K59.00 Constipation, unspecified; R13.12 Dysphagia, oropharyngeal phase; Z66 Do not resuscitate; Z80.0 Family history of malignant neoplasm of digestive organs; Z85.038 Personal history of other malignant neoplasm of large intestine; Z85.118 Personal history of other malignant neoplasm of bronchus and lung; Y93.89 Activity, other specified; Y92.89 Other specified places as the place of occurrence of the external cause; Y99.8 Other external cause status; S42.101A Fracture of unspecified part of scapula, right shoulder, initial encounter for closed fracture
CPT/HCPCS: 20220; 36415; 47000; 70450; 70496; 70498; 70551; 71045; 71260; 74177; 74230; 77012; 80048; 80053; 80307; 80329; 81001; 82010; 82040; 82140; 82306; 82330; 82550; 83605; 83735; 83970; 84100; 84443; 84484; 85025; 85610; 87040; 87086; 88307; 88311; 88360; 93005; 93306; 96365; 99156; 99157; 99291; C1713; G0378; J0690; J0696; J1100; J1644; J1650; J1885; J2250; J2405; J2704; J2710; J3010; J3489; J3490; Q9967; C1762; C1776; G0480; J0360; J0630; J2060; J2310; J3475; J7030; J7040